=== PATIENT | male | born 1945 | race Caucasian/White ===

== ENCOUNTER 2020-09-01 01:16 | Outpatient (CLI) | payer MEDICARE, BC, SELFPAY ==
[2020-09-01 20:15] LABS: SARS-CoV-2 RNA PCR Negative
== END 2020-09-01 01:17 | disposition home or self-care (01) ==
LOC: ANHCOVIDDT 01:16
PROVIDERS: PCP Family Medicine; Visit Provider Plastic Surgery
DX: Z01.812 Encounter for preprocedural laboratory examination (principal); Z11.59 Encounter for screening for other viral diseases
CPT/HCPCS: 87635; C9803; U0003

== ENCOUNTER 2020-09-05 00:40 | Day surgery (SDC) | payer MEDICARE, BC, SELFPAY ==
[2020-08-29 16:06] VITALS: BMI 29.9
[2020-09-05] VITALS (7 sets, daily range): BP systolic 146–176; BP diastolic 79–94; PULSE 66–75; RESP 16–20; TEMP 36.7; O2SAT 95–99
--- NOTE | 2020-09-05 08:26 | WPDHPUPDATE1 ---
History and Physical Update Update Date/Time: 09/05/20 08:26 History and Physical has been reviewed, including an updated exam of the patient. There are NO changes in the patient's condition. Risks, benefits, and alternatives have been discussed and questions answered. Patient agrees to proceed with procedure.
[2020-09-05] MEDS: LIDO 1%/EPINEPHRINE 1:100,000 20 ML VIAL INFILTRATE (14:29)
[2020-09-05] MEDS: BACITRACIN OINTMENT 15 GM TUBE 1 APPLIC TOPICAL (15:03)
--- NOTE | 2020-09-05 15:24 | PM.OP ---
Procedure Note - Brief Procedure Note - Brief Date of procedure: 09/05/20 Pre-op diagnosis: Painful Neoplasm Right Ear Post-op diagnosis: same Procedure performed: 1 cm excision of neoplasm right ear with FS and intermediate repair 1.5 cm. Anesthesia: local Surgeon: Sal Hennessy MD Estimated blood loss (mL): 1 Drains: No Packing: No Pathology: yes Complications: No immediate complications Condition: stable Disposition: same day Findings: Cyst, but further diagnosis is pending permanent slides.
--- NOTE | 2020-09-05 15:27 | PM.PROC ---
Procedure Note - Detailed Date of procedure: 09/05/20 Pre-op diagnosis: Painful Neoplasm Right Ear Post-op diagnosis: same Procedure performed: 1 cm excision of painful neoplasm right ear with frozen section and intermediate repair 1.5 cm Description of procedure: The tender nodular site was marked on the patient's here in the holding area. He was taken to the operating room and placed supine on the operating table. A time-out was held and confirmed. The area was prepped and draped in the usual fashion. The site was marked for excision. This area was infiltrated with 1% lidocaine with epinephrine. The full-thickness skin ellipse was taken off of the cartilage. The specimen was marked at its most superior end for 12:00 o'clock and sent to pathology. 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 We were able to close the skin by carefully undermining the cartilage along the rim of the helix. The cartilage was dissected on its anterior and the posterior margin. The skin could be advanced and closed with interrupted 5 0 nylon suture for a satisfactory repair. The patient is discharged in stable condition is instructions in wound care and follow-up a prescription was sent for some Tramadol 6. Surgeon: Sal Hennessy MD
== END 2020-09-05 15:31 | disposition home or self-care (01) ==
PROVIDERS: PCP Family Medicine; Visit Provider Plastic Surgery
PROC: (CPT 11641; principal; 2020-09-05 13:30)
DX: C44.222 Squamous cell carcinoma of skin of right ear and external auricular canal (principal); Z79.82 Long term (current) use of aspirin; Z79.84 Long term (current) use of oral hypoglycemic drugs; G62.9 Polyneuropathy, unspecified; K76.0 Fatty (change of) liver, not elsewhere classified; E11.42 Type 2 diabetes mellitus with diabetic polyneuropathy; I10 Essential (primary) hypertension; E78.00 Pure hypercholesterolemia, unspecified; G47.30 Sleep apnea, unspecified
CPT/HCPCS: 11641; 12051; 88305; 88331; A9270